=== PATIENT | female | born 1980 | race Caucasian/White ===

== ENCOUNTER 2023-04-06 09:26 | Outpatient (AMB) | payer OTHER, SELFPAY ==
[2023-04-06 10:42] VITALS: BP 122/76; PULSE 76; TEMP 36.9; O2SAT 99; BMI 29.1
--- NOTE | 2023-04-06 10:42 | AM.OFFWIN_ITS ---
Intake Vital Signs 04/06/23 10:42 Height 5 ft 2 in Weight 159 lb BMI 29.1 BP 122/76 Blood Pressure Location Lt brachial Position Sitting Pulse 76 Pulse Source Pulse Oximeter Temp 98.5 F Temp Source Oral Pulse Oximetry (%) 99 Oxygen Delivery Method Room Air Intake Visit Reasons: PATIENT ACCESS REPRESENTATIVE Strep + 03/21 not better Intake Note: Patient is here after round of antibiotics for strep throat, and not feeling better. Last pill was Saturday morning. Patient Tobacco Use Status: Never used Tobacco Allergies No Known Allergies Allergy (Unverified 04/06/23 10:58) Medication List - Last Reconciled 04/06/23 by Sol Shelby CNP No Known Home Meds Do you need a note to return to daycare/school/sports/work: No HPI HPI Comments History of Present Illness Details 42-year-old female presents to walk-in [facility] for complaint of unrelieved symptoms of strep throat after a 10 day course of antibiotics given at [facility]. Visit with [facility] [facility] on 03/21/23 via telemedicine visit completed a 10 day RX of amoxicillin on Saturday morning, 03/30/23. She does feel 85% better most of the time, c/o bilateral ear pain, and pressure, sinus and head pressure. Denies fever, chills, CP, SOB, abdominal pain, nausea, vomiting, changes in bowels or bladder. No known sick contact, Does admit to recent travel, went [place] 03/17/23, and returned 03/21/23. [facility] / [facility] Social History Patient Tobacco Use Status: Never used Tobacco Review of Systems Const All systems reviewed & are unremarkable except as noted in HPI and below Physical Exam Vital Signs: Last Vital Signs Temp 98.5 F 04/06/23 10:42 Pulse 76 04/06/23 10:42 BP 122/76 04/06/23 10:42 Pulse Ox 99 04/06/23 10:42 Oxygen Delivery Method Room Air 04/06/23 10:42 BMI result Body Mass Index 29.1 Const General: healthy appearing and no acute distress Nutritional Appearance: average body habitus Orientation/consciousness: patient oriented x3 Limitations: no limitations HEENT Head: Yes normal to inspection, Yes normocephalic and Yes atraumatic Ears: hearing grossly normal bilaterally and TM's normal bilaterally General nose exam: Abnormal mucous membranes and turbinates present erythematous bilateral and Nasal discharge present purulent bilateral Face and sinus: Yes sinus tenderness Mouth: moist mucous membranes Throat: Yes posterior oropharynx normal Eyes General: appearance normal, both eyes and all related structures Neck Neck: Yes normal visual inspection, Yes no lymphadenopathy, Yes no meningeal signs and Yes supple Chest Chest palpation & inspection: normal inspection of the chest Resp Effort & Inspection: normal respiratory effort, Actively coughing Quality: dry, no respiratory distress and not tachypneic Auscultation: clear to auscultation bilaterally, no rales, no rhonchi and no wheezes Cardio Rate: regular rate Rhythm: regular rhythm Heart sounds: S1 normal heart sound present, S2 normal heart sound present and no murmurs Peripheral pulses: Peripheral pulses 2+ throughout GI Inspection: Yes normal to inspection Palpation (GI): Soft to palpation and nontender Percussion: Yes normal to percussion Auscultation: normal bowel sounds Neuro General: patient oriented x3, gait normal, moves all extremities, no meningeal signs and no focal motor deficits Extrem General: Yes normal to inspection, Yes capillary refill normal and Yes no clubbing, cyanosis or edema Psych Appearance: well kempt Speech and movement: Normal speech and movement present Affect: normal affect Attitude: cooperative Assessment & Plan Assessment & Plan (1) Acute maxillary sinusitis: Code(s): J01.00 - Acute maxillary sinusitis, unspecified Qualifiers: Recurrence: non-recurrent Qualified Code(s): J01.00 - Acute maxillary sinusitis, unspecified Plan: 42-year-old female with recent travel to [place] seen today in office for ongoing symptoms of sinus infection; sinus pressure, sinus tenderness, bilateral ear pressure, and purulent nasal discharge. Obtained PCR for Covid, RSV, and Flu, sent to lab. Will treat empirically for acute sinusitis with Amoxicillin 500 mg po bid x 7 days, encouraged to take with food or milk to reduce GI upset. Flonase nasal spray, 1 spray to each nostril twice a day. Encouraged to drink plenty of fluids and get plenty of rest. Acetaminophen, alternating with Ibuprofen for general body aches Return to office for worsening or unresolved symptoms. Orders: Orders SARS-CoV2/FLU/RSV 04/06/23 R09.89 - Other specified symptoms and signs involving the circulatory and respiratory systems Medications: New fluticasone propionate 50 mcg/actuation (Flonase Allergy Relief) administer into each nostril 1 spray intranasal BID 16 grams 0RF J01.00 - Acute maxillary sinusitis, unspecified amoxicillin 500 mg PO BID 14 caps 0RF J01.00 - Acute maxillary sinusitis, unspecified Coding Level of Care Code Est Pt Level 3 (83898) Diagnoses Acute non-recurrent maxillary sinusitis J01.00 Recurrence: non-recurrent
== END 2023-04-06 11:16 | disposition home or self-care (01) ==
PROVIDERS: PCP Internal Medicine; Visit Provider Nurse Practitioner Acute Care
DX: J01.00 Acute maxillary sinusitis, unspecified (principal)
CPT/HCPCS: 99213

== ENCOUNTER 2023-04-06 11:06 | Outpatient (REF) | payer OTHER, SELFPAY ==
[2023-04-06 14:43] LABS: Influenza A PCR NEGATIVE (Negative); Influenza B PCR NEGATIVE (Negative); Resp Syncy Virus RNA Qual PCR NEGATIVE (Negative); SARS COV2 PCR INHOUSE NEGATIVE (Negative)
== END 2023-04-06 11:07 | disposition home or self-care (01) ==
LOC: HO.LAB 11:06
PROVIDERS: Visit Provider Nurse Practitioner Acute Care
DX: Z11.52 Encounter for screening for COVID-19 (principal); Z20.822 Contact with and (suspected) exposure to COVID-19; R09.89 Other specified symptoms and signs involving the circulatory and respiratory systems
CPT/HCPCS: 0241U